=== PATIENT | male | born 1965 ===

== ENCOUNTER 2025-01-16 21:54 | Emergency (ER) | payer OTHER, SELFPAY ==
[2025-01-16] VITALS (24 sets, daily range): BP systolic 138–176; BP diastolic 63–95; PULSE 83–99; RESP 16–21; TEMP 36.5; O2SAT 94–98; BMI 33.2
[2025-01-16] MEDS: EPINEPHrine 0.3 MG PEN IM (22:06)
[2025-01-16] MEDS: METHYLPREDNISOLONE SOD SUCC 62.5 MG/ML (125) 125 MG IVP (22:07)
--- NOTE | 2025-01-16 22:15 | ED_ITS ---
HPI - Allergic Reaction General Date Seen: 01/16/25 Chief complaint: Allergic Reaction Stated complaint: Tongue Swelling up Time Seen by Provider: 01/16/25 22:15 Source: patient, family and RN notes reviewed Mode of arrival: ambulatory Limitations: no limitations History of Present Illness HPI narrative: Patient is a 59-year-old gentleman who walked into the ER with the tongue swelling, this occurred for the last 2 hours or so, her before had this, it does take lisinopril and has taken it for at least 5-10 years. That is the only medication he takes, minnie was however his 1st episode with vaping marijuana, he used his daughter's vape pen, as he is trying to stop drinking alcohol. The noted the tongue swelling on the right, he is having no problems breathing he denies any shortness of breath associated with this chest pain nausea vomiting or any other symptoms at all. Here with his she notices is right-side of his face is little swollen also. Denies any tooth pain associated with this. No rashes. MD complaint: allergic reaction and facial swelling Severity: moderate Treatment prior to arrival: none Previous Allergic Reaction History: none Related Data Home Medications ?Medication ?Instructions ?Recorded ?Confirmed lisinopril 20 mg tablet 20 mg PO DAILY 01/16/2501/05 Previous Rx's ?Medication ?Instructions ?Recorded epinephrine 0.3 mg/0.3 mL 0.3 ml IM Q5-15M PRN #2 ea 0 01/16/25 injection, auto-injector (EpiPen) prednisone 50 mg tablet 50 mg PO DAILY #10 tabs 01/05 Allergies Allergy/AdvReac Type Severity Reaction Status Date / Time No Known Drug Allergies Allergy Verified 01/16/25 22:04 Review of Systems Status of ROS Reports: 10 or more systems reviewed and unremarkable except as noted in History and below [facility] PFS Social History Smoking Status: Current every day smoker Do you use any of these nicotine containing products: None How often do you have a drink containing alcohol: 2-3 times a week How many standard drinks containing alcohol do you have on a typical day: 3 or 4 AUDIT-C Alcohol total score: 4 Non-prescribed substance use: marijuana (any form) Exam Narrative: Exam Narrative: On examination in stable 1, he appears in no apparent distress, very mild right- sided lip, lower, swelling is noted in the right side of his tongue is swollen. The left side appears normal, or quite a bit less swollen. Protrudes normally, oropharynx is otherwise normal behind here. With normal pharynx noted. There is no swelling noted of the floor of his mouth, his there is no lymphadenopathy is neck is supple, JVP flat, good air entry bilateral with no wheezing crackles noted heart sounds are normal abdomen soft. Skin reveals no petechiae rashes. Moves all extremities independently and well. Const: Vital Signs, click to edit/add: Vital Signs - 24 hr 01/16/25 22:01 01/16/25 22:02 01/16/25 22:07 Temperature Pulse Rate 93 Pulse Rate [Pulse Oximeter] 84 Respiratory Rate 18 21 Blood Pressure Blood Pressure [Ri ght Upper Arm] 159/95 H Pulse Oximetry 97 97 97 Oxygen Delivery Me thod Room Air 01/16/25 22:13 01/16/25 22:15 01/16/25 22:22 Temperature Pulse Rate 83 99 87 Pulse Rate [Pulse Oximeter] Respiratory Rate 21 20 18 Blood Pressure 176/84 H 163/82 H Blood Pressure [Ri ght Upper Arm] Pulse Oximetry 97 97 98 Oxygen Delivery Me thod 01/16/25 22:23 01/16/25 22:30 01/16/25 22:32 Temperature Pulse Rate 87 97 92 Pulse Rate [Pulse Oximeter] Respiratory Rate 18 20 20 Blood Pressure 176/79 H Blood Pressure [Ri ght Upper Arm] Pulse Oximetry 98 96 95 Oxygen Delivery Me thod 01/16/25 22:42 01/16/25 22:45 01/16/25 22:52 Temperature Pulse Rate 89 93 Pulse Rate [Pulse Oximeter] Respiratory Rate 18 18 18 Blood Pressure 170/80 H 166/90 H Blood Pressure [Ri ght Upper Arm] Pulse Oximetry 95 96 Oxygen Delivery Me thod 01/16/25 23:00 01/16/25 23:02 01/16/25 23:13 Temperature Pulse Rate 91 91 95 Pulse Rate [Pulse Oximeter] Respiratory Rate 16 18 20 Blood Pressure 169/71 H 167/68 H Blood Pressure [Ri ght Upper Arm] Pulse Oximetry 96 96 96 Oxygen Delivery Me thod 01/16/25 23:15 01/16/25 23:23 01/16/25 23:30 Temperature Pulse Rate 95 96 91 Pulse Rate [Pulse Oximeter] Respiratory Rate 18 16 18 Blood Pressure 138/63 Blood Pressure [Ri ght Upper Arm] Pulse Oximetry 96 98 95 Oxygen Delivery Me thod 01/16/25 23:32 01/16/25 23:33 01/16/25 23:41 Temperature 97.7 F Pulse Rate 93 89 Pulse Rate [Pulse Oximeter] Respiratory Rate 18 18 Blood Pressure 144/74 H Blood Pressure [Ri ght Upper Arm] Pulse Oximetry 97 96 Oxygen Delivery Me thod 01/16/25 23:42 01/16/25 23:45 01/16/25 23:52 Temperature Pulse Rate 90 92 90 Pulse Rate [Pulse Oximeter] Respiratory Rate 18 18 18 Blood Pressure 141/68 H 146/73 H Blood Pressure [Ri ght Upper Arm] Pulse Oximetry 97 97 94 Oxygen Delivery Me thod 01/17/25 00:00 01/17/25 00:02 01/17/25 00:02 Temperature Pulse Rate 95 95 Pulse Rate [Pulse Oximeter] Respiratory Rate 20 20 Blood Pressure 157/66 H 157/66 H Blood Pressure [Ri ght Upper Arm] Pulse Oximetry 98 95 95 Oxygen Delivery Me thod 01/17/25 00:02 01/17/25 00:11 01/17/25 00:15 Temperature Pulse Rate 95 91 88 Pulse Rate [Pulse Oximeter] Respiratory Rate 20 18 16 Blood Pressure 157/66 H 125/84 Blood Pressure [Ri ght Upper Arm] Pulse Oximetry 95 93 95 Oxygen Delivery Me thod 01/17/25 00:22 01/17/25 00:30 01/17/25 00:32 Temperature Pulse Rate 86 86 86 Pulse Rate [Pulse Oximeter] Respiratory Rate 16 18 18 Blood Pressure 140/71 H 137/70 Blood Pressure [Ri ght Upper Arm] Pulse Oximetry 95 93 95 Oxygen Delivery Me thod Documenting provider has reviewed patient's vital signs: yes Course Reevaluation(s) Time of Reevaluation #1: 23:17 Reevaluation #1: Patient asked the nurse if his tongue was swelling up again, went back and checked him it is probably a little bit better than when I initially saw him, he was sleeping, and vital signs are all stable, we will give him a dose of prednisone along with some Atarax, I will also give him some more normal saline, as is sodium came back a little bit low at 128, probably related to his alcohol use. Explained to the that we will watch him here for the next couple hours, Time of Reevaluation #2: 01:23 Reevaluation #2: Recheck of the patient shows his tongue is significantly less swollen, stable to speak with normal phonation. At this point I think we can let him go home, he will fill his medications as directed he will return here if worsening. Vital Signs Vital signs: Initial Vital Signs Pulse Oximetry 97 01/16/25 22:01 Vital Signs Pulse Oximetry 97 01/16/25 22:01 Temperature 97.7 F 01/16/25 23:41 Pulse Rate 86 01/17/25 00:32 Respiratory Rate 18 01/17/25 00:32 Blood Pressure 137/70 01/17/25 00:32 Pulse Oximetry 95 01/17/25 00:32 Oxygen Delivery Method Room Air 01/16/25 22:02 Medications Administered Medications: Discontinued Medications Generic Name Dose Route Start Last Admin Trade Name Laurita PRN Reason Stop Dose Admin Diphenhydramine HCl 50 mg 01/16/25 22:01 01/16/25 22:07 Diphenhydramine 50 Mg/Ml Inj IVP 01/16/25 22:02 50 mg ONCE ONE Administration Epinephrine HCl 0.3 mg 01/16/25 22:01 01/16/25 22:06 Epinephrine 0.3 Mg Pen IM 01/16/25 22:02 0.3 mg ONCE ONE Administration Hydroxyzine Pamoate 25 mg 01/16/25 23:08 01/16/25 23:13 Hydroxyzine Pamoate 25 Mg Capsule PO 01/16/25 23:09 25 mg ONCE ONE Administration Sodium Chloride 1,000 mls @ 1,000 mls/hr 01/16/25 22:15 01/16/25 23:14 0.9 % Sodium Chloride 1000 Ml IV 01/16/25 23:14 Infused .Q1H KELLEE Infusion Sodium Chloride 1,000 mls @ 1,000 mls/hr 01/16/25 23:15 01/16/25 23:47 0.9 % Sodium Chloride 1000 Ml IV 01/17/25 00:14 Infused .Q1H KELLEE Infusion Methylprednisolone Sodium Succinate 125 mg 01/16/25 22:01 01/16/25 22:07 Methylprednisolone Sod Succ 62.5 Mg/Ml (125) IVP 01/16/25 22:02 125 mg ONCE ONE Administration Prednisone 50 mg 01/16/25 23:08 01/16/25 23:13 Prednisone 10 Mg Tablet PO 01/16/25 23:09 50 mg ONCE ONE Administration MDM - Allergic Reaction MDM Narrative Medical decision making narrative: This swelling, could be multiple etiologies, most likely related to Manjinder inhibitor induced angioedema, C1 deficiency could also not be ruled out, although that should of came about by now. Acute allergic reaction secondary to ingestion, verses use of marijuana is also considered, or possible insect sting. Sylvester's angina, or anaphylaxis thought to be less likely, Given what I see, in the absence of any history of coronary disease, we will go ahead with some IM epinephrine, Benadryl, fluids, and Solu-Medrol. He will be watch for the next few hours for sure. Differential Diagnosis Differential diagnosis: Likely anaphylaxis, allergic reaction, angioedema, contact dermatitis, adverse reaction to drug, viral enanthem and urticaria Lab Data Attestation: I reviewed the patient's lab results. Labs: Lab Results 01/16/25 Range/Units 22:00 WBC 12.10 H (4.50-11.00) K/uL RBC 4.97 (4.30-5.90) m/uL Hgb 15.6 (13.5-17.5) gm/dL Hct 45.1 (37.0-53.0) % MCV 91 (80-100) fL MCH 31 (26-34) pg MCHC 35 (32-36) gm/dL RDW Coeff of Samara 12.2 (11.5-15.5) % Plt Count 281 (140-440) K/uL Neut % (Auto) 67.2 (42.0-72.0) % Lymph % (Auto) 21.2 (20-44) % [place] % (Auto) 9.0 (0.0-11.0) % Eos % (Auto) 0.7 (0.0-7.0) % Baso % (Auto) 0.2 (0.0-3.0) % Neut # (Auto) 8.10 H (1.7-7.0) K/uL Lymph # (Auto) 2.60 (0.90-2.90) K/uL [place] # (Auto) 1.10 H (0.00-0.90) K/UL Eos # (Auto) 0.10 (0.00-0.50) K/uL Baso # (Auto) 0.00 (0.00-0.30) K/uL Abs Immat Gran (auto) 0.20 (0.00-0.30) K/uL Imm/Tot Granulo (auto) 1.7 % Sodium 128 L (135-149) mmol/L Potassium 4.1 (3.6-5.1) mmol/L Chloride 94 L (96-114) mmol/L Carbon Dioxide 25 (20-32) mmol/L Anion Gap 9 (7-15) mEq/L BUN 16 (7-30) mg/dL Creatinine 0.6 (0.5-1.5) mg/dL Estimated Creat Clear 132.56 Estimated GFR 111 ml/min Glucose 98 (60-115) mg/dL Calcium 9.2 (8.4-10.6) mg/dL C-Reactive Protein < 0.5 L (0.5-1.0) mg/dL ECG Data Attestation: I personally reviewed and interpreted this ECG as follows: ECG interpretation date: 01/16/25 Prior ECG tracings: not available for review Interpretation: EKG done in the setting of possible anaphylaxis shows normal sinus rhythm with the ventricular rate 81 QRS 88 QT 366 QTC is 425, assessment normal EKG, Discharge Plan Discharge Clinical Impression: Angioedema Patient Disposition: Home w/ Parent or Adult Condition: Improved Instructions: Angioedema (ED) Additional Instructions: Home rest please take the prednisone and the Benadryl as directed, please berry picker your EpiPen tomorrow to have that also, obviously we will have you stop the lisinopril, and follow-up with her primary care physician, for consideration of other treatment for your hypertension. Return here if increasing swelling breathing issues or other issues. I would also suggest when you follow-up with your doctor to recheck her sodium which was a little on the low side probably from alcohol use, but I do think that stopping her alcohol was the excellent idea. Do I think that this is related to vaping marijuana, I think that we would know that for sure, not to vape marijuana would be my suggestion Activity Level: Light activity Prescriptions: New prednisone 50 mg tablet 50 mg PO DAILY Qty: 10 0RF epinephrine [EpiPen] 0.3 mg/0.3 mL auto-injector 0.3 ml IM Q5-15M PRNQty: 2 0RF Rx Instructions: do not exceed 3 doses per episode No Action lisinopril 20 mg tablet 20 mg PO DAILY Follow Up/Referrals: Provider,Not a Local [Primary Care Provider, Family Practice] Stand Alone Forms: [employer] Info Instructions
[2025-01-16 22:24] LABS: Chloride* 94 mmol/L (96-114); Potassium* 4.1 mmol/L (3.6-5.1); Sodium* 128 mmol/L (135-149)
[2025-01-16 22:27] LABS: Anion Gap 9 mEq/L (7-15); Blood Urea Nitrogen* 16 mg/dL (7-30); Calcium* 9.2 mg/dL (8.4-10.6); Carbon Dioxide* 25 mmol/L (20-32); Creatinine* 0.6 mg/dL (0.5-1.5); Est. Creatinine Clearance* 132.56; Estimated Glomerular Filt Rate 111 ml/min; Glucose* 98 mg/dL (60-115)
[2025-01-16 22:29] LABS: Hematocrit 45.1 % (37.0-53.0); Hemoglobin* 15.6 gm/dL (13.5-17.5); Immature Granulocytes Pct Auto 1.7 %; Mean Corpuscular HGB Conc 35 gm/dL (32-36); Mean Corpuscular Hemoglobin 31 pg (26-34); Mean Corpuscular Volume 91 fL (80-100); RDW Coefficient of Variation % 12.2 % (11.5-15.5); Red Blood Count 4.97 m/uL (4.30-5.90); White Blood Count* 12.10 K/uL (4.50-11.00)
[2025-01-16 22:34] LABS: Immature Granulocytes Abs Auto 0.20 K/uL (0.00-0.30); Lymphocytes Absolute Auto 2.60 K/uL (0.90-2.90); Slide Review Reflex No
--- OUTSIDE RECORDS SUMMARY | 2025-01-16 22:47 | XMS_ITS | Referral Summary ---
Author Organization [facility] Address [address] [place] [id number] Care Team Providers Care Mortgage Loan Officer Originator Name Role Phone Nj Peralta PA-C Primary Care Provider [phone] Allergies No known active allergies Medications triamcinolone acetonide (KENALOG) 0.1% cream 02/19/2022 Active DUPIXENT PEN 300 mg/2 mL SubQ PnIj 11/06/2023 Active lisinopriL (PRINIVIL) 20 mg oral tabletIndication s:Hypertension, unspecified type Take 1 tablet (20 mg) by mouth once daily. 90 tablet 3 02/12/2024 Active gabapentin (NEURONTIN) 300 mg oral capsuleIndicatio ns:Alcohol abuse Take 1 capsule (300 mg) by mouth at bedtime. 90 capsule 3 02/12/2024 Active buPROPion XL (WELLBUTRIN XL) 150 mg oral extended release tablet 24 HRIndications:Sm oker Take 1 tablet (150 mg) by mouth once daily. 90 tablet 3 02/12/2024 Active naltrexone (REVIA) 50 mg oral tabletIndication s:Alcoholism (HCC) Take 1 tablet (50 mg) by mouth once daily. 90 tablet 3 02/12/2024 Active Active Problems Problem Noted Date Diagnosed Date Epidermoid cyst 04/24/2022 HLD (hyperlipidemia) 03/06/2022 Psoriasis 03/04/2022 Smoker 03/04/2022 Class 1 obesity without seri ous comorbidity with body mass index (BMI) of 32.0 to 32.9 in adult, unspecified obesity type 03/04/2022 Family history of colon cancer 03/04/2022 High blood pressure 02/26/2022 Joint pain 02/26/2022 Alcohol abuse 05/25/2014 Essential hypertension, benign 05/25/2014 Resolved Problems Problem Noted Date Diagnosed Date Resolved Date Alcoholism 02/26/2022 03/04/2022 Immunizations Immunization Administration Dates Next Due Pfizer 12+ Yrs Monovalent COVID Vaccine (purple cap) 08/09/2021,07/19/2021 Tdap 09/18/2022 Social History Tobacco Use Types Packs/Day Years Used Date Smoking Tobacco: Every Day Cigarettes 0.5 30 Passive Smoke Exposure: Past Smokeless Tobacco: Never Alcohol Use Standard Drinks/Week Comments Yes 0 (1 standard drink = 0.6 oz pur e alcohol) 6 beers daily, pint a day AUDIT-C Answer Date Recorded Q1: How often do you have a drink containing alcohol? 4 or more times a week 03/04/2022 Q2: How many drinks containi ng alcohol do you have on a typical day when you are drinking? 5 or 6 Q3: How often do you have si x or more drinks on one occasion? 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[employer], medical devices - [employer] Not on file Not on file Not on file Last Filed Vital Signs Vital Sign Reading Time Taken Comments Blood Pressure 132/82 03/19/2024 4:25 PM CDT Pulse 76 03/19/2024 4:25 PM CDT Temperature 36.9 C (98.5 F) 03/19/2024 4:25 PM CDT Respiratory Rate 14 03/19/2024 4:25 PM CDT Oxygen Saturation 97% 03/11/2022 11:34 AM CDT Inhaled Oxygen Concentration - - Weight 102.5 kg (226 lb) 02/12/2024 3:14 PM CDT Height 177.8 cm (5' 10) 02/12/2024 3:14 PM CDT Body Mass Index 32.43 02/12/2024 3:14 PM CDT Plan of Treatment Not on file Procedures Procedure Name Priority Date/Time Associated Diagnosis Comments BASIC METABOLIC PANEL 8 ([facility]) Routine 03/19/2024 4:44 PM CDT Essential hypertension, benign LIPID PANEL ([facility]) Routine 02/12/2024 3:46 PM CDT Hyperlipidemia, unspecified hyperlipidemia type CT CHEST LOW DOSE LUNG SCREENING W/O CON Routine 03/20/2022 3:50 PM CDT Smoker HCV ANTIBODY ([facility]) Routine 03/04/2022 4:34 PM CDT Need for hepatitis C screening test from Last 3 Months or Most Recently Relevant to Health Maintenance Results * (ABNORMAL) BASIC METABOLIC PANEL 8 ([facility]) (03/19/2024 4:44 PM CDT) [facility] Glucose ([facility]) 82 70 - 99 mg/dL 03/20/2024 8:10 AM CDT [facility] BUN ([facility]) 7 6 - 24 mg/dL 03/20/2024 8:10 AM CDT [facility] Creatinine ([facility]) 0.66(L) 0.76 - 1.27 mg/dL 03/20/2024 8:10 AM CDT [facility] eGFR ([facility]) 109 >59 mL/min/1.7 3 03/20/2024 8:10 AM CDT [facility] BUN/Creatinine Ratio ([facility]) 11 9 - 20 03/20/2024 8:10 AM CDT [facility] Sodium ([facility]) 130(L) 134 - 144 mmol/L 03/20/2024 8:10 AM CDT [facility] Potassium ([facility]) 4.2 3.5 - 5.2 mmol/L 03/20/2024 8:10 AM CDT [facility] Chloride ([facility]) 91(L) 96 - 106 mmol/L 03/20/2024 8:10 AM CDT [facility] Carbon Dioxide ([facility]) 23 20 - 29 mmol/L 03/20/2024 8:10 AM CDT [facility] Calcium ([facility]) 9.4 8.7 - 10.2 mg/dL 03/20/2024 8:10 AM CDT [facility] Blood Venipuncture / Unknown 03/19/2024 4:44 PM CDT 03/19/2024 4:44 PM CDT Narrative [facility] - 03/20/2024 8:10 AM CDT Performed at: [facility] [address] [place], [place] [id number] Topology Teacher: Eladio Peguero MD, Phone: [phone] us Nj Peralta PA-C [facility] ORDERABLES Final Resu lt [facility] [address] [place] [address] * LIPID PANEL ([facility]) (02/12/2024 3:46 PM CDT) [facility] Cholesterol ([facility]) 177 100 - 199 mg/dL 02/13/2024 9:10 AM CDT [facility] Triglycerides ([facility]) 50 0 - 149 mg/dL 02/13/2024 9:10 AM CDT [facility] HDL Cholesterol ([facility]) 96 >39 mg/dL 02/13/2024 9:10 AM CDT [facility] VLDL Cholesterol Rolf ([facility]) 10 5 - 40 mg/dL 02/13/2024 9:10 AM CDT [facility] LDL Cholesterol Calc - [facility] ([facility]) 71 0 - 99 mg/dL 02/13/2024 9:10 AM CDT [facility] Blood Venipuncture / Unknown 02/12/2024 3:46 PM CDT 02/12/2024 3:46 PM CDT Narrative [facility] - 02/13/2024 9:10 AM CDT Performed at: 01 - [facility] [address] [place], [place] [id number] Topology Teacher: Eladio Peguero MD, Phone: [phone] us Nj Peralta PA-C [facility] ORDERABLES Final Resu lt [facility] [address] [place] [address] * CT ([facility]) CHEST LOW DOSE LUNG SCREEING W/O CON (03/20/2022 3:50 PM CDT) Anatomical Region Laterality Modality Chest Computed Tomogra phy 03/20/2022 3:55 PM CDT Impressions 03/20/2022 3:58 PM CDT IMPRESSION: 1. Old granulomatous disease. 2. No infiltrate is identified. 3. Fatty infiltration of liver. 4. Healing fractures of the posterior aspects of the left 10th and 11th ribs. REPORT SIGNED BY DR. Lupillo Thompson 03/20/2022 3:58 PM CDT EXAM: CT CHEST LOW DOSE LUNG SCREENING W/O CON DATE: 03/20/2022 3:35 PM COMPARISON: None. CLINICAL DATA: Smoking history. ICD 10: F17.200 Nicotine dependence, unspecified, uncomplicated TECHNIQUE: A low-dose unenhanced CT scan of the thorax was performed. Specifically, thin-section contiguous transaxial images were obtained through the thorax. Coronal and sagittal reformations were also obtained through the thorax. No intravenous contrast was given. Reduced mA and kV were used to lower the radiation dose absorbed by the patient. FINDINGS: Scattered subcentimeter calcified granulomas are seen throughout both lungs. No other pulmonary nodules or masses are seen. No infiltrate is identified. No pleural effusions are seen. Calcified normal-sized mediastinal and bilateral hilar lymph nodes are seen. No mediastinal or hilar adenopathy is identified. No axillary or retrocrural adenopathy is seen. No pericardial effusion is identified. Scattered calcified granulomas are seen in the spleen. Fatty infiltration of the liver is noted. Partially healed fractures of the posterior aspects of the left 10th and 11th ribs are seen. Procedure Note Lupillo Michaud MD - 03/20/2022 EXAM: CT CHEST LOW DOSE LUNG SCREENING W/O CON DATE: 03/20/2022 3:35 PM COMPARISON: None. CLINICAL DATA: Smoking history. ICD 10: F17.200 Nicotine dependence, unspecified, uncomplicated TECHNIQUE: A low-dose unenhanced CT scan of the thorax was performed.Specifically, thin-section contiguous transaxial images were obtainedthrough the thorax. Coronal and sagittal reformations were also obtainedthrough the thorax. No intravenous contrast was given. Reduced mA and kVwere used to lower the radiation dose absorbed by the patient. FINDINGS: Scattered subcentimeter calcified granulomas are seenthroughout both lungs. No other pulmonary nodules or masses are seen. Noinfiltrate is identified. No pleural effusions are seen. Calcified normal-sized mediastinal and bilateral hilar lymph nodes areseen. No mediastinal or hilar adenopathy is identified. No axillary orretrocrural adenopathy is seen. No pericardial effusion is identified. Scattered calcified granulomas are seen in the spleen. Fatty infiltrationof the liver is noted. Partially healed fractures of the posterior aspects of the left 10th [id number] ribs are seen. IMPRESSION IMPRESSION: 1. Old granulomatous disease. 2. No infiltrate is identified. 3. Fatty infiltration of liver. 4. Healing fractures of the posterior aspects of the left 10th and 11thribs. REPORT SIGNED BY DR. Lupillo Michaud Nj Peralta PA-C CT ORDERABLE Final Result * HCV ANTIBODY ([facility]) (03/04/2022 4:34 PM CDT) Hepatitis C Virus Antibody ([facility]) <0.1 0.0 - 0.9 s/co ratio 03/05/2022 11:09 AM CDT [facility] Comment: Negative: < 0.8 Indeterminate: 0.8 - 0.9 Positive: > 0.9 HCV antibody alone does not differentiate between previous resolved infection and active infection. The CDC and current clinical guidelines recommend that a positive HCV antibody result be followed up with an HCV RNA test to support the diagnosis of acute HCV infection. [facility] offers Hepatitis C Virus (HCV) RNA, Diagnosis, ADALGISA (518335) and Hepatitis C Virus (HCV) Antibody with reflex to Quantitative Real-time PCR (825307). Blood Venipuncture / Unknown 03/04/2022 4:34 PM CDT 03/04/2022 4:34 PM CDT Narrative [facility] - 03/05/2022 11:09 AM CDT Performed at: - [address] [id number] Topology Teacher: Eladio Peguero MD, Phone: [phone] us Nj Peralta PA-C [facility] ORDERABLES Final Resu lt [facility] [address] [place] [id number] from Last 3 Months or Most Recently Relevant to Health Maintenance Insurance [employer] OPEN ACCESS/CHOICE [place] [id number] Care Teams Mortgage Loan Officer Originator Relationship Specialty Start Date End Date Nj Peralta PA-C PCP - General 04/09/22
--- OUTSIDE RECORDS SUMMARY | 2025-01-16 22:48 | XMS_ITS | Clinical Summary ---
Author Organization [facility] Address [address] [place] [id number] Care Team Providers Care Flatbed Truck Driver Name Role Phone Nj Peralta PA-C Primary Care Provider [phone] Allergies No known active allergies Medications triamcinolone [...] COVID Vaccine (purple cap) 08/09/2021,07/19/2021 Tdap 09/18/2022 Family History Medical History Relation Comments High Blood Pressure Brother Colon Cancer Father 70s Diabetes Maternal Grandmother Colon Cancer Mother 80s High Blood Pressure Sister Relation Status Comments Brother Father Maternal Grandmother Mother Sister Social History Tobacco Use Types Packs/Day Years [...] Industry Job Start Date Job End Date 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[employer], medical devices - [employer] Not on [...] 02/12/2024 3:14 PM CDT Plan of Treatment Health Maintenance Due Date Last Done Comments Colonoscopy 1965 Pneumococcal 50+ Years (1 of 2 - PCV) 1984 Anxiety Screening (JUANITA-2) 02/11/2025 02/12/2024 Depression Assessment (PHQ-2) 02/11/2025 02/12/2024 Lipid Screening 02/11/2025 02/12/2024, 03/0 02/2023, 03/04/2022 Yearly Review of HCD 02/11/2025 02/12/2024 Influenza Vaccine (#1) 2025 Diabetes Screening 03/19/2027 03/19/2024, 0 02/12/2024, 02/12/2024, Additional history exists Adult Tetanus Booster 09/18/2032 09/18/2022 RSV Vaccines (1 - 1-dose 75+ series) 2040 COVID-19 Vaccine Discontinued 08/09/2021, 07/19/2021 Hepatitis C Screening Completed 03/04/[address] Discontinued 03/20/2022 Meningococcal B Vaccine Aged Out No l onger eligible based on patient's age to complete this topic Zoster Vaccine Discontinued Procedures Procedure Name Priority Date/Time Associated Diagnosis [...] PANEL 8 ([facility]) (03/19/2024 4:44 PM CDT) [facility] Glucose ([facility]) 82 70 - 99 mg/dL [...] 4:44 PM CDT 03/19/2024 4:44 PM CDT [facility] - 03/20/2024 8:10 AM CDT Performed at: [address] [place] [id number] Bath Attendant: Eladio Peguero MD, Phone: [phone] us Nj Peralta PA-C [facility] ORDERABLES Final Resu lt [facility] [address] [place] [address] * LIPID PANEL ([facility]) (02/12/2024 3:46 PM CDT) [facility] Cholesterol ([facility]) 177 100 - 199 mg/dL [...] - 02/13/2024 9:10 AM CDT Performed at: [address] [place] [id number] Bath Attendant: Eladio Peguero MD, Phone: [phone] us Nj Peralta PA-C [facility] ORDERABLES Final Resu lt Performing Organization Address [facility] [[email or web address]] Co de Phone Number [facility] [address] [place] [address] * CT ([facility]) CHEST LOW DOSE LUNG SCREEING W/O CON (03/20/2022 3:50 PM CDT) Anatomical Region Laterality Modality Chest Computed Tomogra phy 03/20/2022 3:55 PM CDT Impressions 03/20/2022 3:58 PM CDT IMPRESSION: 1. Old granulomatous disease. 2. No infiltrate is identified. 3. Fatty infiltration of liver. 4. Healing fractures of the posterior aspects of the left 10th and 11th ribs. REPORT SIGNED BY DR. Lupillo Michaud Narrative 03/20/2022 3:58 PM CDT EXAM: CT CHEST [...] the posterior aspects of the left 10th [id number] ribs are seen. IMPRESSION IMPRESSION: 1. Old granulomatous disease. 2. No infiltrate is identified. 3. Fatty infiltration of liver. 4. Healing fractures of the posterior aspects of the left 10th and 11thribs. REPORT SIGNED BY DR. Lupillo Michaud Nj Peralta PA-C CT ORDERABLE Final Result * [facility] AN[facility]IBODY [facility]) (03/04/2022 4:34 PM CDT) Hepatitis C Virus Antibody ([facility]) <0.1 0.0 - 0.9 s/co ratio 03/05/2022 11:09 AM CDT [facility] Comment: Negative: < 0.8 Indeterminate: 0.8 - 0.9 Positive: > 0.9 HCV antibody alone does not differentiate between previous resolved infection and active infection. The CDC and current clinical guidelines recommend that a positive HCV antibody result be followed up with an HCV RNA test to support the diagnosis of acute HCV infection. [facility] offers Hepatitis C Virus (HCV) RNA, Diagnosis, ADALGISA (088778) and Hepatitis C Virus (HCV) Antibody with reflex to Quantitative Real-time PCR (620007). Blood Venipuncture / Unknown 03/04/2022 4:34 PM CDT 03/04/2022 4:34 PM CDT Narrative [facility] - 03/05/2022 11:09 AM CDT Performed at: - [address] [id number] Bath Attendant: Eladio Peguero MD, Phone: [phone] Nj Peralta PA-C [facility] ORDERABLES Final Resu lt [facility] [address] [place] [address] from Last 3 Months or Most Recently Relevant to Health Maintenance Insurance [employer] OPEN ACCESS/CHOICE CONSUELO [place] [id number] Care Teams Flatbed Truck Driver Relationship Specialty Start Date End Date Nj Peralta, PAArielaC PCP - General 04/09/22
[2025-01-17] VITALS (15 sets, daily range): BP systolic 125–157; BP diastolic 66–84; PULSE 81–95; RESP 16–20; O2SAT 93–98
== END 2025-01-17 01:30 | disposition home or self-care (01) ==
PROVIDERS: Emergency Provider Family Medicine
DX: T78.3XXA Angioneurotic edema, initial encounter (principal); T50.995A Adverse effect of other drugs, medicaments and biological substances, initial encounter
CPT/HCPCS: 36415; 80048; 85025; 86140; 93005; 94761; 96372; 96374; 96375; 99284; 99285; A9270; J0169; J1200; J2919; J7030; J7512